=== PATIENT | female | born 2000 | race American Indian/Alaskan Native ===

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

== ENCOUNTER 2023-05-08 00:14 | Emergency (ER) | payer OTHER ==
[~2023-05-08] VITALS: Ht 162.6 cm; Wt 63.5 kg
[~2023-05-08 00:14] MED LIST changes: +NORCO 5-325 TA1 EACH PO; +TRAMADOL HCL50 MG PO
[2023-05-08 00:41] LABS: BILIRUBIN, URINE NEGATIVE (negative); BLOOD/HGB, URINE NEGATIVE (Negative); KETONE, URINE NEGATIVE (Negative); LEUK ESTERASE, URINE NEGATIVE (negative); NITRITE, URINE NEGATIVE (negative)
[2023-05-08 00:49] LABS: HEMATOCRIT 45.6 % (35.0-50.0); HEMOGLOBIN 15.6 g/dL (12.0-18.0); MCH 31.4 (27-36); MCHC 34.2 g/dl (30-36); MCV 91.9 fl (81-99); PLATELET COUNT 382 K/uL (140-440); RBC 4.96 M/ul (4.3-5.7); RDW 12.8 (10.5-15.0)
[2023-05-08 00:54] LABS: AMPHETAMINES, URINE NEGATIVE (NEGATIVE); BARBITURATES, URINE NEGATIVE (NEGATIVE); BENZODIAZEPINE, URINE NEGATIVE (NEGATIVE); BUPRENORPHINE, URINE NEGATIVE (NEGATIVE); CANNABINOID, URINE POSITIVE (NEGATIVE); COCAINE, URINE NEGATIVE (NEGATIVE); ECSTASY, URINE NEGATIVE (NEGATIVE); FENTANYL, URINE NEGATIVE (NEGATIVE); METHADONE, URINE NEGATIVE (NEGATIVE); OPIATES, URINE NEGATIVE (NEGATIVE); OXYCODONE, URINE NEGATIVE (NEGATIVE); PHENCYCLIDINE, URINE NEGATIVE (NEGATIVE)
[2023-05-08 01:06] LABS: ALBUMIN 3.9 g/dL (3.4-5.0); ALBUMIN/GLOBULIN RATIO 0.95 (1.1-2.4); ALKALINE PHOSPHATASE 92 U/L (46-116); ALT (SGPT) 49 U/L (14-59); ANION GAP 17.9 (7-21); AST (SGOT) 36 U/L (15-37); BILIRUBIN, TOTAL 0.5 ng/dL (0.2-1.0); CARBON DIOXIDE 19 mmol/L (21-32); CHLORIDE 104 mmol/L (98-107); POTASSIUM 3.9 mmol/L (3.5-5.1); UREA NITROGEN 6 mg/dL (7-18)
[2023-05-08 01:11] LABS: CREATININE, SERUM < 0.55 mg/dL (0.55-1.02); GLOMERULAR FILTRATION RATE,EST 133 mL/min (>60)
[2023-05-08 01:12] LABS: CALCIUM <5.0 mg/dL (8.5-10.1)
[2023-05-08 01:21] LABS: BANDS, MANUAL DIFF 4; EOSINOPHILS, MANUAL DIFF 1; LYMPHOCYTES, MANUAL DIFF 40; MONOCYTES, MANUAL DIFF 5; NEUTROPHILS, MANUAL DIFF 50
[2023-05-08 02:28] VITALS: BP 125/80
== END 2023-05-08 02:29 | disposition home or self-care (01) ==
LOC: ED 00:14
PROVIDERS: Internal Medicine
DX: F41.0 Panic disorder [episodic paroxysmal anxiety] (principal); F10.129 Alcohol abuse with intoxication, unspecified; Y90.6 Blood alcohol level of 120-199 mg/100 ml
CPT/HCPCS: 36415; 71045; 80053; 80307; 81003; 82310; 84703; 85025; 85379; 99284-25; A9270-GY; G0480; J7121